=== PATIENT | female | born 1960 | race African-American/Black ===

== ENCOUNTER → 2019-02-07 | Day surgery (SDC) | payer OTHER ==
--- NOTE | 2019-02-08 19:47 | PATH ---
Cytology Non-Gynecological Report Patient Name: CHASE CALLAHAN [facility]. Rec. #: [id number] /Age/Gender: 1960 (Age: 58) / F Account: [id number] Location: RADIOLOGY INTER Taken: 02/07/2019 Received: 02/07/2019 Reported: 02/08/2019 Physicians: Vikas Ortiz M.D. Specimen(s) Received RIGHT THYROID FNA Clinical History Right lobe, 4.48 x 0.95 x 1.35 cm Final Diagnosis THYROID, RIGHT, FINE NEEDLE ASPIRATION: SATISFACTORY FOR EVALUATION. B[place] CLASS II: BENIGN. CYTOLOGIC FINDINGS ARE CONSISTENT WITH A BENIGN FOLLICULAR NODULE WITH POST-HEMORRHAGIC CHANGE. SMALL FOLLICULAR CELLS IN A BACKGROUND OF ABUNDANT COLLOID, MACROPHAGES, AND MULTINUCLEATED GIANT CELLS. Electronically Signed Katelyn Lynch M.D. Gross Description Received are eight direct smears, four of which are air-dried and Diff-Quik stained, and four of which are alcohol fixed and Pap stained. Also received is 20 ml of bloody formalin from which one cellblock is prepared.
== END | disposition home or self-care (01) ==
LOC: JRADIR 10:26
PROVIDERS: ATTEND Internal Medicine Endocrinology, Diabetes & Metabolism
PROC: 0G9H3ZX Drainage of Right Thyroid Gland Lobe, Percutaneous Approach, Diagnostic (ICD-10-PCS; principal; 2019-02-07)
DX: E04.1 Nontoxic single thyroid nodule (principal)
CPT/HCPCS: 76942; 88173; 88305-TC